=== PATIENT | male | born 1985 | race Two or more races ===

== ENCOUNTER → 2023-09-17 15:16 | Outpatient (BNVA) | payer OTHER, SELFPAY | PROVIDERS: PCP Internal Medicine Geriatric Medicine; Visit Provider Physician Assistant Medical | DX: S39.012A Strain of muscle, fascia and tendon of lower back, initial encounter (principal); X50.0XXA Overexertion from strenuous movement or load, initial encounter | CPT/HCPCS: 72100; 99204 ==

== ENCOUNTER → 2023-09-28 15:04 | Outpatient (BNVA) | payer OTHER, SELFPAY | PROVIDERS: PCP Internal Medicine; Visit Provider Physician Assistant Medical | DX: S39.012A Strain of muscle, fascia and tendon of lower back, initial encounter (principal); X50.0XXA Overexertion from strenuous movement or load, initial encounter | CPT/HCPCS: 99213 ==

== ENCOUNTER → 2023-10-12 15:10 | Outpatient (BNVA) | payer OTHER, SELFPAY | PROVIDERS: PCP Internal Medicine; Visit Provider Physician Assistant Medical | DX: S39.012D Strain of muscle, fascia and tendon of lower back, subsequent encounter (principal); X50.0XXD Overexertion from strenuous movement or load, subsequent encounter | CPT/HCPCS: 99213 ==

== ENCOUNTER 2023-10-19 09:00 | Outpatient (RCR) | payer OTHER, SELFPAY ==
--- NOTE | 2023-09-23 12:43 | MHC.PT.EP ---
[facility] [place] Office [place] Office [place] Office [address] [phone] F: [phone] F: [phone] F: [phone] F: [phone] Physical Therapy Plan of Care Date of Evaluation: 09/23/23 Date of Surgery: Diagnosis: lumbar back sprain/strain Assessment: Patient is a 38 year old R handed male who presents with s/s consistent with lumbar sprain/strain, low back pain. 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 Patient past medical history is unremarkable. Current impairments include pain, posture, ROM, strength, body mechanics, activity tolerance and functional mobility. Functional limitations include decreased ability to sit, stand, walk, sleep, run, bend, lift, twist, and carry. Patient is motivated with good rehab potential. Skilled PT will address impairments and functional limitations in order to achieve goals. Frequency and Duration: The patient will be seen 2x/week for 5 weeks Short Term Goals: I with HEP - 2 weeks AROM rotation 100% pain free - 3 weeks Demo proper floor to waist body mechanics with 40# - 3 weeks Skilled Nursing Goals: Return to work and PLOF pain free - 5 weeks TTP absent - 5 weeks Oswestry 10% or better - 5 weeks Treatment Plan: Modalities to reduce pain, spasms and effusion. Manual therapy to restore motion and function. Therapeutic exercise to improve strength and flexibility. Neuromuscular re-education for posture and balance. Therapeutic activities to return to functional activities of daily living. Electronically signed by: Shamir Saravia, PT Please sign and return to therapist. Thank you for your referral.
--- NOTE | 2023-12-10 09:29 | MHC.PT.DC ---
[facility] [place] [facility] [place] Office [place] Office [address] [phone] F: [phone] F: [phone] F: [phone] F: [phone] Physical Therapy Discharge Report Diagnosis: lumbar back sprain/strain Date of Surgery: Date of Evaluation: 09/23/23 Date of Discharge: 10/22/23 Treatments to Date: 8 Cancellations to Date: No Shows to Date: Discharge Status: Insurance Declined Tx Discharge Summary: 10/19/23: pt progressing well with skilled PT. functional and work related gains are evident. all goals have been met or progressed towards. He does still have flexibility concerns (hamstring tightness which is documented in this assessment - which is also functionally necessary to ensure longevity - sustained autobody technician improvements) and stiffness/pain at times depending on position and activity. it would be beneficial to taper to 1x/week for 4 more weeks to promote I with HEP but also continue to address flexibility and pain concerns. his 90/90 is currently lacking 32 on L, and 31 on R. goals are updated. he has been motivated and compliant throughout and would benefit from 1x/week for 4 more weeks to ensure safe return to all work related activities. 10/15/23: pt progressing well. no adverse reactions as we have been able to fine tune body mechanics and progress weight lifting to work levels. 1 more visit then d/c to HEP. 10/13/23: pt progressing well with skilled PT. improved body mechanics and activity tolerance. reduced s/s overall. progress towards safe return to PLOF. 10/07/23: pt continues to respond well with skilled PT. continue to progress as tolerated with focus on mechanics and safe return to work. 10/05/23: pt progressing well. s/s reduced and progressing functional with focus on mechanics. good understanding and carryover. required cues for set up, foot position and neutral spine. 10/01/23: pt progressing well overall with reduced tissue tension, reduced pain. progress body mechanics NV. 09/28/23: pt progressing well with skilled PT. reduced TTP in back. reduced pain with walking, transfers. progress with stretching and body mechanics as appropriate. Patient is a 38 year old R handed male who presents with s/s consistent with lumbar sprain/strain, low back pain. 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 Patient past medical history is unremarkable. Current impairments include pain, posture, ROM, strength, body mechanics, activity tolerance and functional mobility. Functional limitations include decreased ability to sit, stand, walk, sleep, run, bend, lift, twist, and carry. Patient is motivated with good rehab potential. Skilled PT will address impairments and functional limitations in order to achieve goals. Electronically signed by: Shamir Saravia, PT Please sign and return to therapist. Thank you for your referral.
== END 2023-12-10 09:30 | disposition home or self-care (01) ==
LOC: HO.PTCHIC 09:00
PROVIDERS: PCP Internal Medicine; Visit Provider Physician Assistant Medical
DX: S39.012D Strain of muscle, fascia and tendon of lower back, subsequent encounter (principal); M62.830 Muscle spasm of back
CPT/HCPCS: 97014; 97110; 97140; 97161; 97164; 97530

== ENCOUNTER → 2023-10-26 15:05 | Outpatient (BNVA) | payer OTHER, SELFPAY | PROVIDERS: PCP Internal Medicine; Visit Provider Physician Assistant Medical | DX: S39.012D Strain of muscle, fascia and tendon of lower back, subsequent encounter (principal); X50.0XXD Overexertion from strenuous movement or load, subsequent encounter | CPT/HCPCS: 99213 ==

== ENCOUNTER → 2023-11-17 14:42 | Outpatient (BNVA) | payer OTHER, SELFPAY | PROVIDERS: PCP Internal Medicine; Visit Provider Physician Assistant Medical | DX: S39.012D Strain of muscle, fascia and tendon of lower back, subsequent encounter (principal); X50.0XXD Overexertion from strenuous movement or load, subsequent encounter | CPT/HCPCS: 99213 ==

== ENCOUNTER → 2023-12-08 15:01 | Outpatient (BNVA) | payer OTHER, SELFPAY | PROVIDERS: PCP Internal Medicine; Visit Provider Registered Nurse | DX: S39.012D Strain of muscle, fascia and tendon of lower back, subsequent encounter (principal); X50.0XXD Overexertion from strenuous movement or load, subsequent encounter | CPT/HCPCS: 99213 ==

== ENCOUNTER → 2023-12-29 15:36 | Outpatient (BNVA) | payer OTHER, SELFPAY | PROVIDERS: PCP Internal Medicine; Visit Provider Registered Nurse | DX: S39.012D Strain of muscle, fascia and tendon of lower back, subsequent encounter (principal); X50.0XXD Overexertion from strenuous movement or load, subsequent encounter | CPT/HCPCS: 99213 ==